=== PATIENT | male | born 1970 | race Caucasian/White ===

== ENCOUNTER 2017-05-29 09:30 | Emergency (ER) | payer OTHER ==
[2017-05-29 09:31] VITALS: BMI 33.4
[2017-05-29 09:36] VITALS: TEMP 97.8; O2SAT 98
--- NOTE | 2017-05-29 09:48 | C.PDOC ---
History Of Present Illness 47 y/o male presents to ED with complaints of pain to the right foot for 3 days. Patient denies trauma. He reports that 1 week ago he twisted his ankle, but did not have any pain afterwards and continues to have no pain to his ankle. He reports that he has taken Aleve and used crutches with no improvement. He also reports using arnica cream. Patient reports that he was previously evaluated by gout but reports that his "tests were negative." Denies fever, chills, nausea, vomiting, weakness, tingling, rash. Patient reports that he has been wearing flip flops because it is more comfortable. Time Seen by Provider: 05/29/17 09:45 Chief Complaint (Nursing): Lower Extremity Problem/Injury History Per: Patient History/Exam Limitations: no limitations Onset/Duration Of Symptoms: Days Current Symptoms Are (Timing): Still Present - Knee Description Of Injury: Twisted Past Medical History Reviewed: Historical Data, Nursing Documentation, Vital Signs Vital Signs: Last Vital Signs Temp 97.8 F 05/29/17 09:35 Pulse 70 05/29/17 10:40 Resp 16 05/29/17 10:40 BP 123/70 05/29/17 10:40 Pulse Ox 98 05/29/17 10:52 - Medical History PMH: No Chronic Diseases Family History: States: No Known Family Hx - Social History Hx Alcohol Use: No Hx Substance Use: No - Immunization History Hx Tetanus Toxoid Vaccination: No Hx Influenza Vaccination: No Hx Pneumococcal Vaccination: No Review Of Systems Constitutional: Negative for: Fever, Chills, Weakness, Malaise Cardiovascular: Negative for: Chest Pain, Palpitations Respiratory: Negative for: Cough, Shortness of Breath, SOB with Excertion Gastrointestinal: Negative for: Nausea, Vomiting, Diarrhea, Constipation Genitourinary: Negative for: Dysuria Musculoskeletal: Positive for: Foot Pain. Negative for: Neck Pain, Back Pain, Leg Pain Skin: Negative for: Rash Neurological: Negative for: Weakness, Numbness, Headache Physical Exam - Physical Exam Appears: Well, No Acute Distress Skin: Normal Color, Warm Head: Atraumatic, Normacephalic Eye(s): bilateral: Normal Inspection, PERRL, EOMI Neck: Normal Extremity: Normal ROM, No Deformity, No Swelling, Other (Tenderness to anterior surface of R foot at the mid aspect of the 4th metatarsal. No ankle tenderness. Normal ROM. Normal strength) Pulses: Left Dorsalis Pedis: Normal, Right Dorsalis Pedis: Normal Neurological/Psych: Oriented x3 Gait: Steady ED Course And Treatment O2 Sat by Pulse Oximetry: 98 (RA) Pulse Ox Interpretation: Normal Medical Decision Making Medical Decision Making: Xray R foot shows "Marked soft tissue swelling. No acute displaced fracture, dislocation, or significant joint effusion identified. If symptoms persist, or if there is continued clinical concern, x-ray follow-up in 7-10 days should be considered." Patient has no tenderness at ankle. Presentation does not appear consistent with gout. There is no swelling to joints. There is no erythema present. Patient is afebrile and well appearing. Will place patient in hard soled shoe and have him follow-up with PMD. Disposition - Disposition Disposition: HOME/ ROUTINE Disposition Time: 10:34 Condition: GOOD Additional Instructions: Take motrin every 6 hours as needed. Wear hard soled shoe for comfort. Return to ED if condition worsens. Instructions: Arthralgia (ED) - Clinical Impression Clinical Impression: Foot pain - Scribe Statement The provider has reviewed the documentation as recorded by the Charlesibramona Abbott All medical record entries made by the Prakash were at my direction and personally dictated by me. I have reviewed the chart and agree that the record accurately reflects my personal performance of the history, physical exam, medical decision making, and the department course for this patient. I have also personally directed, reviewed, and agree with the discharge instructions and disposition.
[2017-05-29 10:41] VITALS: BP 123/70; PULSE 70; RESP 16
--- NOTE | 2017-05-29 10:48 | RAD ---
PROCEDURE: Right Foot Radiographs. HISTORY: R foot pain, 5th metatarsal COMPARISON: None available. FINDINGS: BONES: No acute displaced fracture. JOINTS: No dislocation. SOFT TISSUES: Marked soft tissue swelling. No evidence of radiopaque foreign body. OTHER FINDINGS: None. IMPRESSION: Marked soft tissue swelling. No acute displaced fracture, dislocation, or significant joint effusion identified. If symptoms persist, or if there is continued clinical concern, x-ray follow-up in 7-10 days should be considered.
== END 2017-05-29 10:40 | disposition home or self-care (01) ==
LOC: C.ER 09:30
DX: M79.671 Pain in right foot (principal)
CPT/HCPCS: 73630; 96372; 99284; J1885

== ENCOUNTER 2017-06-01 09:13 | Emergency (ER) | payer OTHER ==
[2017-06-01 09:13] VITALS: BMI 33.4
[2017-06-01 09:17] VITALS: O2SAT 99
--- NOTE | 2017-06-01 09:49 | C.PDOC ---
History Of Present Illness 47 y/o male presents to the ED with complaints of persistent pain to top of right foot x6 days. Pt seen 05/29 for same, discharged with motrin and hard soled shoe. Swelling and pain persists and no relief from medications discharged with. Pt denies history of diabetes or any other associated symptoms. Denies toe, ankle, leg pain or swelling. PERSIST TOP OF R FOOT PAIN X 6 DAYS. SEEN 05/29 FOR SAME. DC MOTRIN, HARD SOLED SHOE. PERSIST SWELL AND PAIN, NO RELIEF W MEDS DC WITH. DENIES HO DM, OTHER ASSOC SX. NO TOE, ANKLE, LEG PAIN OR SWELLING. EXAM MILD DIST NONTOXIC EXT R FOOT +NONPITTING EDEMA ALONG 4-5TH METATARASALS W DIFFUSE LOCAL TEND. NO TOE OR JOINT TEND. AROM WO DIFF. ANKLE, LEG WNL SKIN MIN ERYTHEMA/INFLAMM TOP OF FOOT. NO LYMPHANGITIS, RASH, OTHER LESIONS. NEURO INTACT Time Seen by Provider: 06/01/17 09:48 Chief Complaint (Nursing): Lower Extremity Problem/Injury History Per: Patient History/Exam Limitations: no limitations Onset/Duration Of Symptoms: Days, Persistent Current Symptoms Are (Timing): Still Present Severity: Moderate Recent travel outside of the [place]: No Past Medical History Reviewed: Historical Data, Nursing Documentation, Vital Signs Vital Signs: Last Vital Signs Temp 97.6 F 06/01/17 09:14 Pulse 74 06/01/17 09:14 Resp 20 06/01/17 09:14 BP 130/97 H 06/01/17 09:14 Pulse Ox 99 06/01/17 10:20 Family History: States: Unknown Family Hx - Social History Hx Alcohol Use: No Hx Substance Use: No - Immunization History Hx Tetanus Toxoid Vaccination: No Hx Influenza Vaccination: No Hx Pneumococcal Vaccination: No Review Of Systems Constitutional: Negative for: Fever, Chills Musculoskeletal: Positive for: Foot Pain (top of right foot), Other (no toe/ ankle/leg pain or swelling) Neurological: Negative for: Weakness, Numbness Physical Exam - Physical Exam Appears: Non-toxic, In Acute Distress (mild discomfort) Skin: Warm, Dry, No Rash Head: Atraumatic, Normacephalic Extremity: Normal ROM (AROM without difficulty), Pedal Edema (No pitting edema along 4-5th metatarsals with diffuse local tenderness, no toe or joint tenderness.), Capillary Refill (<2 seconds), No Deformity, Other (Ankle, leg WNL. Minimal erythema/inflammation to top of right foot. No lymphangitis, rash, or other lesions.) Pulses: Right Dorsalis Pedis: Normal Neurological/Psych: Oriented x3, Normal Speech, Normal Cognition, Normal Motor, Normal Sensation ED Course And Treatment O2 Sat by Pulse Oximetry: 99 (room air) Pulse Ox Interpretation: Normal Progress - Re-Evaluation Re-evaluation Note: 06/01/17 10:06 D/W PODIATRY JEFRY WILL EVAL IN ER 06/01/17 10:36 SP EVAL PODIATRY: MODIFIED CULVER DRESSING APPLIED. ADVISED TO FU CLINIC 06/02. CONT CURRENT MEDS - Data Reviewed Data Reviewed: Old records - Continuity of Care Discussed pt. case with reporting consultant/specialty: Podiatry Disposition Counseled Patient/Family Regarding: Diagnosis, Need For Followup - Disposition Referrals: [facility] [Outside] [facility] [Outside] Disposition: HOME/ ROUTINE Disposition Time: 10:37 Condition: IMPROVED Additional Instructions: FOLLOW UP PODIATRY CLINIC INSTRUCTED 06/02. KEEP ELEVATED Forms: [facility] [employer] [facility] (Scottish), General Discharge Instructions - Clinical Impression Clinical Impression: Foot pain - Scribe Statement The provider has reviewed the documentation as recorded by the Prakash Gaspar Provider Attestation: All medical record entries made by the Prakash were at my direction and personally dictated by me. I have reviewed the chart and agree that the record accurately reflects my personal performance of the history, physical exam, medical decision making, and the department course for this patient. I have also personally directed, reviewed, and agree with the discharge instructions and disposition.
[2017-06-01 10:43] VITALS: BP 148/92; PULSE 68; RESP 18; TEMP 97.9
--- NOTE | 2017-06-01 14:10 | CP.PCM.CON ---
<Annemarie Portillo - Last Filed: 06/01/17 14:07> History of Present Illness - History of Present Illness History of Present Illness: 47 y/o male with no known pmhx seen at bedside in the ED for right foot pain. Patient states he was in the ED 3 days ago for the same pain but the pain has not gotten any better. Patient states the pain is an 8/10 today. He states that about a week ago he twisted his foot and ever since then he has had shooting pains on the outside of the top of his foot. Patient states that he has had lower back pain in the past. He denies any other trauma and any other pedal complaints at this time. Patient denies numbness or burning. Review of Systems - Constitutional Constitutional: As Per HPI Past Patient History - Past Medical History & Family History Past Medical History?: Yes - Past Social History Smoking Status: Former Smoker - MUSCULOSKELETAL/RHEUMATOLOGICAL Hx Musculoskeletal Disorders: Yes Hx Back Pain: Yes - GASTROINTESTINAL Hx Gastrointestinal Disorders: No - GENITOURINARY/GYNECOLOGICAL Hx Genitourinary Disorders: No - PSYCHIATRIC Hx Substance Use: No - SURGICAL HISTORY Hx Surgeries: Yes Other/Comment: CYST REMOVED BUTTOCK. EPIDURALS - ANESTHESIA Hx Anesthesia: Yes Hx Anesthesia Reactions: No Hx Malignant Hyperthermia: No Meds Allergies/Adverse Reactions: Allergies Allergy/AdvReac Type Severity Reaction Status Date / Time No Known Allergies Allergy Verified 06/01/17 09:17 Physical Exam - Constitutional Appears: Well, Non-toxic, No Acute Distress - Extremities Exam Additional comments: Vasc: DP / PT 2/4 b/l, TG wnl, CFT < 3 sec to all digits, localized nonpitting edema, mild erythema to right foot neuro: grossly intact derm: localized edema and erythema to right forefoot, no open lesions, no ascending cellutlis, no acute clinical signs of infection ortho: pain on palapation along 4th metatarsal - Neurological Exam Neurological exam: Alert, Oriented x3 Results - Vital Signs Recent Vital Signs: Last Vital Signs Temp 97.9 F 06/01/17 10:38 Pulse 68 06/01/17 10:38 Resp 18 06/01/17 10:38 BP 148/92 H 06/01/17 10:38 Pulse Ox 99 06/01/17 10:38 Assessment & Plan - Assessment and Plan (Free Text) Assessment: 47 y/o male seen at bedside in ED regarding right foot pain Plan: patient evaluated and chart reviewed discussed in detail with attending Dr. Smith labs and vitals reviewed; afebrile X rays of right foot reviewed and show no fracture or dislocation noted applied lynn compression using webril and ROSALBA instructed patient to cont. taking ibuprofen for pain prn patient instructed to follow up in clinic 06/05/17 <Georgina Smith - Last Filed: 06/05/17 10:37> History of Present Illness - History of Present Illness History of Present Illness: Diagnosis: Right foot tarsometatarsal sprain versus questionable 4th metatarsal base stress fracture. Results - Vital Signs Recent Vital Signs: Last Vital Signs Temp 97.9 F 06/01/17 10:38 Pulse 68 06/01/17 10:38 Resp 18 06/01/17 10:38 BP 148/92 H 06/01/17 10:38 Pulse Ox 99 06/01/17 10:38
== END 2017-06-01 10:48 | disposition home or self-care (01) ==
LOC: C.ER 09:13
DX: M79.671 Pain in right foot (principal)
CPT/HCPCS: 96372; 99284; J1885

== ENCOUNTER 2017-07-04 09:23 | Emergency (ER) | payer OTHER ==
[2017-07-04 09:23] VITALS: BMI 39.5
[2017-07-04 09:36] VITALS: TEMP 97.5
--- NOTE | 2017-07-04 09:42 | C.PDOC ---
History Of Present Illness 47M c/o pain over the top of his right foot for 1 month. he says he twisted his foot a week before it started but no trauma at the time it began. he was seen here twice before for the same, had xray and podiatry eval and then followed up in clinic a few days ago. taking motrin and using ice but pain persists. Time Seen by Provider: 07/04/17 09:39 Chief Complaint (Nursing): Lower Extremity Problem/Injury Past Medical History Vital Signs: Last Vital Signs Temp 97.5 F L 07/04/17 09:32 Pulse 106 H 07/04/17 09:32 Resp 20 07/04/17 09:32 BP 120/77 07/04/17 09:32 Pulse Ox 100 07/04/17 10:52 Family History: States: Diabetes - Social History Hx Alcohol Use: No Hx Substance Use: No - Immunization History Hx Tetanus Toxoid Vaccination: No Hx Influenza Vaccination: No Hx Pneumococcal Vaccination: No Review Of Systems Constitutional: Negative for: Fever, Chills Cardiovascular: Negative for: Chest Pain Respiratory: Negative for: Shortness of Breath Gastrointestinal: Negative for: Vomiting Neurological: Negative for: Weakness, Numbness Physical Exam - Physical Exam Appears: Well, Non-toxic, No Acute Distress Skin: Warm, Dry Head: Atraumatic Cardiovascular: Rhythm Regular Respiratory: No Decreased Breath Sounds, No Accessory Muscle Use Extremity: Other (right foot- ttp over lateral aspect of the dorsum of the foot. mild swelling. no redness or warmth. ankle has nl rom. DP pulse 2+. sensation intact. ) Neurological/Psych: Oriented x3, Normal Motor, Normal Sensation ED Course And Treatment O2 Sat by Pulse Oximetry: 100 (room air ) - Other Rad Right Foot Radiographs X-Ray: Viewed By Me, Read By Radiologist Interpretation: FINDINGS: BONES: No fracture. JOINTS:First metatarsal- phalangeal joint mild arthrosis. SOFT TISSUES:Dorsal mid-forefoot soft tissue swelling. No subcutaneous gas. OTHER FINDINGS:None. IMPRESSION:No fracture or dislocation. Dorsal soft tissue swelling. No subcutaneous gas No radiopaque foreign body. First metatarsal-phalangeal joint arthrosis Medical Decision Making Medical Decision Making: consulted podiatry- resident eval in the ED and placed splint. pt to f/u in their office. Disposition - Disposition Disposition: HOME/ ROUTINE Disposition Time: 11:15 Condition: STABLE Forms: [facility] (Guinean) - Clinical Impression Clinical Impression: Foot pain
--- NOTE | 2017-07-04 10:29 | RAD ---
PROCEDURE: Right Foot Radiographs. HISTORY: dorsal pain no trauma COMPARISON: None. FINDINGS: BONES: . No fracture. JOINTS: First metatarsal-phalangeal joint mild arthrosis SOFT TISSUES: Dorsal mid-forefoot soft tissue swelling. No subcutaneous gas OTHER FINDINGS: None. IMPRESSION: No fracture or dislocation. Dorsal soft tissue swelling. No subcutaneous gas No radiopaque foreign body. First metatarsal-phalangeal joint arthrosis
--- NOTE | 2017-07-04 10:48 | CP.PCM.CON ---
History of Present Illness - History of Present Illness History of Present Illness: 47 year old male with no significant PMHx was seen at bedside in the ED for right foot pain. He states that he was in the ED about a month ago and also followed up in podiatry clinic for this pain. He states that two days ago his pain got worse, but denies any aggravating incidents. He has used ice, elevating , and motrin which helped a little. In clinic he got an injection and states that it did not help his pain. He admits to walking on his right heel using a crutch under his left arm. He denies any other trauma and any other pedal complaints at this time. Denies any n/v/f/c/sob/cp. Past Patient History - Past Medical History & Family History Past Medical History?: Yes - Past Social History Smoking Status: Former Smoker - MUSCULOSKELETAL/RHEUMATOLOGICAL Hx Musculoskeletal Disorders: Yes Hx Back Pain: Yes - GASTROINTESTINAL Hx Gastrointestinal Disorders: No - GENITOURINARY/GYNECOLOGICAL Hx Genitourinary Disorders: No - PSYCHIATRIC Hx Substance Use: No - SURGICAL HISTORY Hx Surgeries: Yes Other/Comment: CYST REMOVED BUTTOCK. EPIDURALS - ANESTHESIA Hx Anesthesia: Yes Hx Anesthesia Reactions: No Hx Malignant Hyperthermia: No Meds Home Medications: Home Medication List Medication Instructions Recorded Confirmed Type Naproxen [Naprosyn] 500 mg PO Q12H PRN #10 tablet 07/04/17 Rx Allergies/Adverse Reactions: Allergies Allergy/AdvReac Type Severity Reaction Status Date / Time No Known Allergies Allergy Verified 07/04/17 09:54 Physical Exam - Constitutional Appears: Well, Non-toxic, No Acute Distress - Extremities Exam Additional comments: Right lower extremity focused exam: Vasc:DP and PT pulses palpable 2/4. CFT < 3 seconds to all digits. Skin temperature warm to warm from proximal to distal. Neuro:Gross sensation intact Derm:Edema noted to the dorsum of the right foot. No open lesions noted. No acute signs of infection noted. Ortho: Tenderness on palpation to the right 4th metatarsal - Neurological Exam Neurological exam: Alert, Oriented x3 - Psychiatric Exam Psychiatric exam: Normal Affect, Normal Mood Results - Vital Signs Recent Vital Signs: Last Vital Signs Temp 97.5 F L 07/04/17 09:32 Pulse 106 H 07/04/17 09:32 Resp 20 07/04/17 09:32 BP 120/77 07/04/17 09:32 Pulse Ox 100 07/04/17 09:56 - Labs Labs: Laboratory Results - last 24 hr 07/04/17 09:58 POC Glucose (mg/dL) 79 Assessment & Plan - Assessment and Plan (Free Text) Assessment: 47 year old male with right foot pain Plan: patient examined and evaluated discussed in detail with attending, Dr. Luis lemus, chart, vitals reviewed Radiographs reviewed no acute fractures noted right foot dressed in lynn compressive dressing with posterior splint patient to remain non WB to RLE with crutches keep dressing c/d/i until follow up in clinic neelima dominguez for pain patient to follow up in podiatry clinic
[2017-07-04 11:34] VITALS: BP 124/72; PULSE 89; RESP 18; O2SAT 98
== END 2017-07-04 11:35 | disposition home or self-care (01) ==
LOC: C.ER 09:23
DX: M79.671 Pain in right foot (principal)
CPT/HCPCS: 73630; 82948; 96372; 99285; J1885

== ENCOUNTER 2017-10-20 04:29 | Emergency (ER) | payer OTHER ==
[2017-10-20 04:29] VITALS: BMI 40.0
[2017-10-20 04:47] VITALS: RESP 20
--- NOTE | 2017-10-20 05:24 | C.PDOC ---
History Of Present Illness 47 year old male with a Hx of gout presents to the ER with a complaint of right great toe pain, states the pain is similar to previous gout attacks. Patient also complains of generalized pruritus, she reports eating fish yesterday but is unsure if he is allergic and is concerned for possible reaction. Denies weakness, numbness, or SOB. Time Seen by Provider: 10/20/17 05:07 Chief Complaint (Nursing): Allergic Reaction History Per: Patient History/Exam Limitations: no limitations Onset/Duration Of Symptoms: Hrs Current Symptoms Are (Timing): Still Present Recent travel outside of the [place]: No Past Medical History Reviewed: Historical Data, Nursing Documentation, Vital Signs Vital Signs: Last Vital Signs Temp 97.7 F 10/20/17 04:34 Pulse 104 H 10/20/17 04:34 Resp 20 10/20/17 04:34 BP 134/98 H 10/20/17 04:34 Pulse Ox 98 10/20/17 05:27 - Medical History PMH: No Chronic Diseases Surgical History: No Surg Hx Family History: States: Diabetes - Social History Hx Alcohol Use: No Hx Substance Use: No - Immunization History Hx Tetanus Toxoid Vaccination: No Hx Influenza Vaccination: No Hx Pneumococcal Vaccination: No Review Of Systems Musculoskeletal: Positive for: Foot Pain Skin: Positive for: Other (pruritus) Neurological: Negative for: Weakness, Numbness Physical Exam - Physical Exam Appears: Non-toxic Skin: Warm, Dry, Other (Dry scaling rash to upper back. No hives or swelling.) Head: Atraumatic, Normacephalic Eye(s): bilateral: Normal Inspection Oral Mucosa: Moist Lips: Normal Appearing, No Swelling Throat: Normal, No Other (Swelling) Neck: Normal, Supple Chest: Symmetrical, No Tenderness Cardiovascular: Rhythm Regular Respiratory: Normal Breath Sounds, No Rales, No Rhonchi, No Stridor, No Wheezing Extremity: Tenderness (Right great toe w/ minimal swelling), No Other (Erythema , Effusion) Pulses: Left Dorsalis Pedis: Normal, Right Dorsalis Pedis: Normal Neurological/Psych: Oriented x3, Normal Speech, Normal Motor, Normal Sensation ED Course And Treatment O2 Sat by Pulse Oximetry: 98 (room air) Pulse Ox Interpretation: Normal Progress Note: Benadryl and toradol administered. On reevaluation, patient reports improvement of pain, will discharge home with instructions to follow up with PMD. Disposition Counseled Patient/Family Regarding: Diagnosis, Need For Followup, Rx Given - Disposition Disposition: HOME/ ROUTINE Disposition Time: 05:21 Condition: STABLE Additional Instructions: Follow up in clinic Return if worse Prescriptions: DiphenhydrAMINE [Benadryl] 50 mg PO TID #20 cap Naproxen [Naprosyn] 1 tab PO BID PRN #20 tab PRN Reason: Pain Instructions: Gout (ED), Itchy Skin (ED) Forms: [employer] ([place]) - Clinical Impression Clinical Impression: Pruritus, Gout attack - PA / TREATMENT TECHNICIAN / Resident Statement MD/DO has reviewed & agrees with the documentation as recorded. - Scribe Statement The provider has reviewed the documentation as recorded by the Charlesibramona Carranza All medical record entries made by the Charlesibramona were at my direction and personally dictated by me. I have reviewed the chart and agree that the record accurately reflects my personal performance of the history, physical exam, medical decision making, and the department course for this patient. I have also personally directed, reviewed, and agree with the discharge instructions and disposition.
[2017-10-20 05:54] VITALS: BP 129/86; PULSE 92; TEMP 98.1; O2SAT 98
== END 2017-10-20 05:56 | disposition home or self-care (01) ==
LOC: C.ER 04:29
DX: M10.9 Gout, unspecified (principal); L29.9 Pruritus, unspecified
CPT/HCPCS: 96372; 99284; J1885